=== PATIENT | female | born 1985 | race Two or more races ===

== ENCOUNTER → 2025-02-24 08:15 | Outpatient (REF) | payer OTHER, SELFPAY ==
--- NOTE | 2025-02-24 08:20 | ECG_ITS ---
Test Reason : R/O QT PROLONGATION Blood Pressure : */* mmHG Vent. Rate : 94 BPM Atrial Rate : 94 BPM P-R Int : 130 ms QRS Dur : 90 ms QT Int : 376 ms P-R-T Axes : 34 29 57 degrees QTcB Int : 470 ms Sinus rhythm with Premature atrial complexes with Aberrant conduction Otherwise normal ECG When compared with ECG of 21-Nov-2013 03:25, Aberrant conduction is now Present Referred By: Janette Santo Electronically Signed By: SHON GOSS MD
--- OUTSIDE RECORDS SUMMARY | 2025-02-24 08:22 | XMS_ITS | Encounter Summary ---
Author Organization [facility] Address [address] [place] [address] Care Team Providers Care Integration Developer Name Role Phone Bertha Hummel MD Primary Care Pr ovider Reason for Visit * Reason Onset Date Comments prior auth 01/26/2025 Encounter Details Date Type Department Care Team (Late st Contact Info) Description 01/26/2025 Telephone Adult Medicine [address] [phone] Bertha Hmumel MD [address] [place] [id number] prior auth Social History Tobacco Use Types Packs/Day Years Used Date Smoking Tobacco: Never Smokeless Tobacco: Never Alcohol Use Standard Drinks/Week Comments Never 0 (1 standard drink = 0.6 oz pur e alcohol) Comments No Sex and Gender Information Value Date Recorded Sex Assigned at Female 12/08/2024 6:17 AM EST Legal Sex Female 11:00 AM EST Gender Identity Female 12/08/2024 6:17 AM EST Sexual Orientation Choose not to disclose 2024 11:23 AM EST documented as of this encounter Progress Notes * Mora Barragan MA - 02/03/2025 3:19 PM EDT Prior authorization for the colace was completed today on [facility] Dx code K59.00 constipation * Lorena Love - 02/03/2025 1:05 PM EDT Pharmacy calling to check on prior auth status * Gudelia Gaxiola - 01/27/2025 3:20 PM EDT Prior Authorization for Medication-do not complete and send this encounter unless you have the fax from the pharmacy. Is this a Cover My Meds request: Yes -- [place] Code [id number] Name of Medication colace clear Dose of Medication 50 mg What is the RX # from the faxed refill? How does patient take this med? orally What Pharmacy did the fax come from: [facility] fax #: [phone] * Fidel Escamilla MA - 01/27/2025 10:59 AM EDT To [place] dept * Chanelle Curran - 01/26/2025 2:39 PM EDT Caller has been trying to fax a prior auth to [facility] for Colace Clear, [place] Code is [id number]. Please advise if Cover My Meds was received. documented in this encounter Plan of Treatment Upcoming Encounters Date Type Department Care Team (Late st Contact Info) Description 02/24/2025 2:00 PM EDT Office Visit Gastroenterology - [place] 175 [facility] 175 [facility] [address] [place] [phone] Jeannette Gutierrez, HUMA 175 [facility] [place], [place] [id number] 06/01/2025 3:00 PM EDT Office Visit Adult Medicine [facility] [address] [place] [phone] Francia Felton PA [address] [place] [address] 06/23/2025 3:00 PM EDT Office Visit [facility] [address] [phone] Kenia Boone MD [address] [phone] documented as of this encounter Visit Diagnoses Not on filedocumented in this encounter Care Teams Integration Developer Relationship Specialty Start Date End Date Bertha Hummel MD [address] [place] [address] PCP - General Internal Medicine 08/09/24 documented as of this encounter
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
--- OUTSIDE RECORDS SUMMARY | 2025-02-24 08:22 | XMS_ITS | Clinical Summary ---
Author Organization [facility] Address [address] [place] [address] Care Team Providers Care Doctor Of Naturopathic Medicine Name Role Phone Unavailable Primary Care Provider Unavailabl e Medications Medication Sig Dispensed Refills Start Date End Date Status Wellbutrin XL 300 MG 24 hr tablet 0 07/15/2024 Active Desvenlafaxine ER 50 MG TB24 Take 25 mg by mouth daily. 0 Active estradiol (ESTRACE) 1 MG tablet 0 07/21/2024 Active Arnuity Ellipta 100 MCG/ACT AEPB 0 07/15/2024 Active LaMICtal 25 MG tablet 0 07/16/2024 Active metoprolol succinate (TOPROL-XL) 24 hr tablet 25 mg 0 07/15/2024 Active spironolactone (ALDACTONE) tablet 50 mg 0 07/15/2024 Active omeprazole (PriLOSEC) 40 MG capsule 0 07/15/2024 Active levalbuterol (XOPENEX HFA) 45 MCG/ACT inhaler INHALE 1 TO 2 PUFFS INTO THE LUNGS EVERY 4 HOURS NEEDED FOR WHEEZING, SHORTNESS OF BREATH OR COUGH. 0 06/07/2024 Active Magnesium 400 MG CAPS Take 400 mg by mouth daily. 30 capsule 3 07/27/2024 Active Riboflavin 400 MG CAPS Take 400 mg by mouth daily. 30 capsule 3 07/27/2024 Active Social History Tobacco Use Types Packs/Day Years Used Date Smoking Tobacco: Never Assessed Sex and Gender Information Value Date Recorded Sex Assigned at Female 06/28/2024 12:11 PM EDT Gender Identity Not on file Sexual Orientation Not on file Job Start Date Occupation Industry Not on file Not on file Not on file Last Filed Vital Signs Vital Sign Reading Time Taken Comments Blood Pressure 128/85 07/27/2024 1:17 PM EDT Pulse 73 07/27/2024 1:17 PM EDT Temperature 36.1 ??C (97 ??F) 07/27/2024 1:17 PM EDT Respiratory Rate - - Oxygen Saturation - - Inhaled Oxygen Concentration - - Weight 66.5 kg (146 lb 9.6 oz) 07/27/2024 1:17 P M EDT Height 160 cm (5' 3 ) 07/27/2024 1:17 PM EDT Body Mass Index 25.97 07/27/2024 1:17 PM EDT Plan of Treatment Health Maintenance Due Date Last Done Comments Hepatitis C Screening 1986 COVID-19 Vaccine (#1) 05/14/1987 DTap / Tdap / Td (5 - Tdap) 11/14/199708/13, 08/08/1988, 03/18/1988, Additional history exists Depression Screening 1998 Preventative Health Evaluation 2004 Cervical Cancer Screening (Pap Smear) 2007 Influenza Vaccine (#1) 2024 Hepatitis B Vaccines Completed 03/23/2001, 10/14/2000, 07/30/2000 Pneumococcal Vaccine Aged Out No long er eligible based on patient's age to complete this topic RSV Ped < 20 months Aged Out No longe r eligible based on patient's age to complete this topic SIMÓN DOZIER [id number]
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
--- OUTSIDE RECORDS SUMMARY | 2025-02-24 08:23 | XMS_ITS | Clinical Summary ---
Author Organization [facility] Address [address] [place] [phone] Phone Care Team Providers Care Spar Machine Operator Name Role Phone Lyric Martínez Primary Care Provider [phone] Immunizations Immunization Administration Dates Next Due DTP 08/24/1990, 8,03/18/1988,1987,01/20/1987 Hep B, ped/adol 03/23/2001,10/14/2000,07/30/2000 Hib (PRP-T) 08/24/1990 MMR 07/11/2000,03/18/1988 OPV 08/08/1988, 8,01/17/1988,1986 Td (adult) (MBL), 2 Lf tetan us toxoid, PF, adsorbed 07/11/2000 Varicella 06/12/1997 Family History Relation Name Status Comments Father Alive Father: Hyperte nsion / Depression Mother Alive Mother: Depress ion Other Family history of Migraines, Family history of Asthma, Family history of Elevated cholesterol, Family history of Obesity, Family history of Diabetes mellitus, Family history of Sudden /AL under age 55 Paternal Grandmother Paterna l grandmother: Cancer -cervical Sister Alive Sister: mental disability Social History Tobacco Use Types Packs/Day Years Used Date Smoking Tobacco: Never Assessed Comments Unknown Sex and Gender Information Value Date Recorded Sex Assigned at Not on file Legal Sex Female 4:40 PM EDT Gender Identity Not on file Sexual Orientation Not on file Plan of Treatment Health Maintenance Due Date Last Done Comments DTaP,Tdap,and Td Vaccines (6 - Tdap) 07/12/2000 07/11/2000, 08/24/1990, 08/08/1988, Additional history exists Varicella Vaccines (2 of 2 - 2-dose childhood series) 08/08/2000 06/12/1997 Influenza Vaccines (#1) 2024 COVID-19 Vaccine ( season) 2024 IPV Vaccines Completed 08/08/1988, 03/1988, 01/17/1988, Additional history exists HIB Vaccines Completed 08/24/1990 MMR Vaccines Completed 07/11/2000, 03/18/1988 Hepatitis B Vaccines Completed 03/23/2001, 10/14/2000, 07/30/2000 HPV Vaccines Aged Out No longer eligi ble based on patient's age to complete this topic Hepatitis A Vaccines Aged Out No long er eligible based on patient's age to complete this topic Men B Vaccine Aged Out No longer elig ible based on patient's age to complete this topic Meningococcal Vaccine Aged Out No abel nabil eligible based on patient's age to complete this topic Pneumococcal Vaccine Aged Out No long er eligible based on patient's age to complete this topic Care Teams Spar Machine Operator Relationship Specialty Start Date End Date Lyric Martínez [address] [place] [id number] PCP - General 05/23/17
--- OUTSIDE RECORDS SUMMARY | 2025-02-24 08:23 | XMS_ITS | Data Portability ---
Author Organization [facility] Address [address] [place] [phone] Care Team Providers Care Outbound Sales Advisor Name Role Phone HIM CCA OTHER MIRANDA KRUEGER Primary Care Provider Assessment Encounter Date Assessment Date Assessment LastModified by Organization Details LastModified Time 07/12/2024 07/12/2024 I provided real -time medical direction via phone for this encounter and was available for additional phone-based assistance as needed. I have reviewed and agree with the Assessment and Plan as documented by the Defence Intelligence Analyst. Patient given the opportunity to ask questions. Our service contacted for an assessment of: Broken to As per above, patient states that she has a broken tooth and was in touch with her dentist who recommended a referral to what sounds like [facility]. She will have an in-person appointment on Friday. She states that she was told to call the service to prescribe clindamycin for her. She denies any fever chills. She states that she has taken clindamycin in the past. She does state that she has a history of MRSA as well as frequent dental infections requiring clindamycin treatment. Per cyber intelligence analyst on the scene, vital signs are stable patient is afebrile. Please see uploaded pictures. Impression: Broken tooth Plan: Prescribed a short course of clindamycin with 1st dose in the field for dental infection. Patient should follow-up on Friday with dentist for referral. Allergies: Reviewed and patient unable to give PCP f/u: We discussed the diagnostic uncertainty of home visits and the risk associated with this. In this case, the patient and I felt this to be an acceptable and reasonable amount of risk given the benefit of avoiding an ED visit. We discussed the need to seek care urgently/emerge ntly in the setting of any new or worsening serious symptoms, particularly fever chills [email or web address] Not available 07/12/2024 21:15:45 Plan of Treatment Reminders Order Date Submit Date Provider Last Modified By Organization Details Last Modified Time Details Appointments None recorded. Lab None recorded. Referral None recorded. Procedures None recorded. Surgeries None recorded. Imaging None recorded. Medication Orders clindamyci n HCl 300 mg capsule 2023 024 LESLIE [employer] [place], [address] [place], [address], 4 21:13:55 Patient TargetsNo targets recorded. Patient InstructionsNo instructions recorded. Reason for Referral None Reported. Medical Equipment None Reported. Medications Name Sig Start Date Stop Date Status Note LastModified by Organization Details LastModified Time amoxicillin 500 mg capsule active Not Available Not Available N ot Available Vitamin B-2 100 mg tablet active Not Available Not Available No t Available clonidine HCl 0.1 mg tablet active Not Available Not Availabl e Not Available clindamycin HCl 300 mg capsule Take 1 capsule every 6 hours by oral route for 5 days. 2023 active Not Available Not Available Not Avai lable sucralfate 1 gram tablet active Not Available Not Available Not Available Wellbutrin SR 150 mg tablet, 12 hr sustained-relea se active Not Available Not Available Not Available omeprazole 40 mg capsule,delayed release active Not Available Not Available Not Available famotidine 20 mg tablet active Not Available Not Available No t Available magnesium oxide 400 mg (241.3 mg magnesium) tablet active Not Available Not Available Not Available lorazepam 0.5 mg tablet active Not Available Not Available No t Available estradiol 1 mg tablet active Not Available Not Available Not Available Lamictal 25 mg tablet active Not Available Not Available Not Available simvastatin 20 mg tablet active Not Available Not Available No t Available hydrochlorothia zide 12.5 mg capsule active Not Available Not Available Not Available Lamictal 150 mg tablet active Not Available Not Available Not Available metoprolol succinate ER 25 mg tablet,extended release 24 hr active Not Available Not Availabl e Not Available scopolamine 1 mg over 3 days transdermal patch active Not Available Not Available Not Available ondansetron 4 mg disintegrating tablet active Not Available Not Available Not Available spironolactone 50 mg tablet active Not Available Not Available Not Available hydroxyzine pamoate 25 mg capsule active Not Available Not Available Not Available Wellbutrin XL 300 mg 24 hr tablet, extended release active Not Available Not Available Not Available Lunesta 3 mg tablet active Not Available Not Available Not Available levalbuterol HFA 45 mcg/actuation aerosol inhaler active Not Available Not Availa ble Not Available Pristiq 50 mg tablet,extended release active Not Available Not Available Not Available Arnuity Ellipta 100 mcg/actuation powder for inhalation active Not Available Not Available N ot Available Vyvanse 10 mg capsule active Not Available Not Available Not Available Pristiq 25 mg tablet,extended release active Not Available Not Available Not Available Vitals Date Recorded Body weight Oxygen saturation Oxygen saturation in Arterial blood by Pulse oximetry Body height Body temperature Respiratory rate Heart rate Systolic blood pressure Diastolic blood pressure Systolic blood pressure Diastolic blood pressure Provider Name and Address Organization Details Last Updated DateTime 4 70392.8 8 g 98 % 98 % 160.02 cm 98.7 [degF] 14 /min 82 /min 118 mm[Hg] 100 mm[Hg] 148 mm[Hg] 100 mm[Hg] Not Available [facility] - [facility] 4 20:08:11 Social History None recorded. Functional Status None recorded. Mental Status None recorded. Family History Nothing Reported. Medical History No medical history recorded. Gynecological HistoryNo gynecological history recorded. Obstetrics History GPAL:G 0 P 0 0 0 0 Past Encounters Encounter ID Performer Location Encounter Start Date Encounter Closed Date Diagnosis/Indication Diagnosis SNOMED-CT Code Diagnosis ICD10 Code Diagnosis Note [id number] Zamzam Clark MD [facility] [address] [place] [phone] 07/12/2024 19:26:21 07/13/2024 12:53:42 Infection of tooth 678199030 K04.7 Fracture of tooth 800854 09 S02.5XXA Health Concerns Section Related Observation LastModified by Organization Detai ls LastModified Time None Recorded Concern Status LastModified by Organization Details LastModified Time None Recorded Advance Directives Directive None Recorded Payers Insurance Date Sequence Insurance Name Policy Number Policy Cooley Covered Member ID Cooley Member ID Guarantor Name 07/14/2024 1 [facility] - DOS ON OR AFTER 2023 - DUAL ELIGIBLE - JAIL OPTIONS AND ONE CARE (MEDICARE REPLACEMENT/ADV ANTAGE - HMO) Asha Tracy [id number] Asha Tracy Notes Date Note Type Note Provider Name and Address Organization Details Recorded Time 07/12/2024 text/html [facility] Nurse Triage Notes (Cristhian Basurto): Reason For Request: poss infected tooth Chief Complaints: Dental Concerns Allergies: Unknown Comments: Pt reports upper left back tooth pain - Facial swelling - Denies fever - Denies pain - I broke my tooth yesterday and I have a bad taste in my mouth. Dentist appt is scheduled for Friday morning - Wellness visit requested .................. .................. .................. .................. .................. .................. .................. ............... Defence Intelligence Analyst Note From Ida Burris: Disp for the 38 year old female cc broken tooth. Upon arrival patient found walking on scene. Patient is FINNEGAN x 4 GCS x 15 speaking in full sentences with ease, skin pink/warm/dry, strong radial pulse. Patient states her first molar on upper left side of mouth broke in half yesterday. Patient has an extensive history of teeth issues and oral surgeries, resulting in root canals, jaw abscesses and bone graphs. Patient also has an extensive history of MRSA. Patient states she was advised by her dentist to go to urgent care and get antibiotics for prophylactic treatment. Patient states she has a dentist appointment for this Friday and will get a referral to her Oral surgeon. Patient denies chest pain, denies shortness of breath, denies n/v/d, denies recent fevers, denies swelling/redness at affected site. Patient vtls obtained, as stated above. BP 148/100. Patient reports htn at baseline. [place] [facility] [place]. Patient spoke with Dr. Clark about extensive oral/dental history. Dr. Clark ordered 300 mgs of clindamycin PO and antibiotic sent to pharmacy. Dr. Clark advised patient that prescription would ne enough to get her to dentist appointment, and advised her to ask Dentist to take over treatment/antibiot ic care. Patient was advised of risks/red flags and was advised to go to local emergency room. Patient took medication on scene. Patient understood risks and treatment plan. All times approx. .................. .................. .................. .................. .................. .................. .................. ............... Disposition: Fulfilled Zamzam Clark MD [address] [place] [address],[address], [place], [phone], [employer] 07/12/2024 21:15:58 OBGyn Episode No OBEpisode recorded.
--- OUTSIDE RECORDS SUMMARY | 2025-02-24 08:23 | XMS_ITS | Encounter Summary ---
Author Organization [facility] Address [address] [place] [address] Phone Care Team Providers Care Information Resources Manager Name Role Phone Lyric Martínez Primary Care Provider [phone] Encounter Details Date Type Department Care Team (Late st Contact Info) Description 05/29/2017 Conversion Encounter [facility] [address] [place] [address] Social History Tobacco Use Types Packs/Day Years Used Date Smoking Tobacco: Never Assessed Comments Unknown Sex and Gender Information Value Date Recorded Sex Assigned at Not on file Legal Sex Female 4:40 PM EDT Gender Identity Not on file Sexual Orientation Not on file documented as of this encounter Plan of Treatment Not on file documented as of this encounter Visit Diagnoses Not on filedocumented in this encounter Care Teams Information Resources Manager Relationship Specialty Start Date End Date Lyric Martínez [address] [facility] [address] [place] [address] PCP - General 05/23/17 documented as of this encounter
--- OUTSIDE RECORDS SUMMARY | 2025-02-24 08:23 | XMS_ITS | Clinical Summary ---
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 the absence of epileptiform abnormalities does not preclude a clinical diagnosis of seizures. ??Clinical correlation required. CC Kristen Maloney PA Damian Moskal, MD Epileptologist/Staff neurologist ?? us Kristen [facility] ORDER[facility]LES Final R esult from Last 3 Months Insurance SIMÓN DOZIER [id number] [facility] MEDIC[facility] Member Subscriber Plan / Payer (Ef fective 2019-Present) Name:Asha Tracy Relation to Subscriber:Self Name:Asha Tracy Payer ID:[id number] Group ID:[id number] Type:Not on file Address: [address] [id number] Care Teams Sales Negotiator Relationship Specialty Start Date End Date Bertha Hummel MD [address] [place] [id number] PCP - General Internal Medicine 08/09/24
[2025-02-24 08:43] LABS: MANUAL DIFF FLAG NO
[2025-02-24 09:26] LABS: Basophils Absolute Auto 0.1 X10*3/uL (0.0-0.2); Basophils Percent Auto 0.7 % (0-2); Eosinophils Absolute Auto 0.1 X10*3/uL (0.0-0.4); Eosinophils Percent Auto 1.5 % (0-4); Hematocrit 42.7 % (37.0-47.0); Hemoglobin 14.1 g/dl (12.0-16.0); Imm Gran Abs Auto 0.03 X10*3/uL (0.00-0.03); Imm Gran Pct Auto 0.4 % (0.0-0.4); Lymphocytes Absolute Auto 2.3 X10*3/uL (1.2-4.9); Lymphocytes Percent Auto 32.2 % (20-40); Mean Corpuscular Hemoglobin 30.2 pg (27.0-33.0); Mean Corpuscular Volume 91.4 fL (80.0-98.0); Mean Platelet Volume 8.2 fL (9.4-12.3); Monocytes Absolute Auto 0.6 X10*3/uL (0.1-1.2); Monocytes Percent Auto 8.1 % (2-11); Neutrophils Absolute Auto 4.1 x10*3/uL (2.0-8.3); Neutrophils Percent Auto 57.1 % (45-73); Platelet Count 342 X10*3/uL (160-400); Red Blood Count 4.67 X10*6/uL (4.20-5.50); Red Cell Distribution Width 12.6 % (11.0-16.0); White Blood Count 7.1 X10*3/uL (4.8-10.8)
[2025-02-24 09:31] LABS: Estimated Average Glucose 103 mg/dL; Hemoglobin A1C 124.5459 umol/L; Hemoglobin A1c % 5.2 % (<6.0); Total Hemoglobin (HGBA1C) 3736.7141 umol/L
[2025-02-24 09:31] LABS: UPreg QC Valid YES
[2025-02-24 09:32] LABS: Appearance Urine Cloudy; Color Urine Yellow; Glucose Urine UA Negative (Negative); Leukocyte Esterase Urine Negative (Negative); Nitrite Urine Negative (Negative); PH 5.5 (5.0-9.0); Specific Gravity - Urine 1.025 (1.005-1.025); Urine Blood Negative (Negative); Urine Ketones Trace mg/dL (Negative); Urine Pregnancy NEGATIVE (NEGATIVE); Urine Protein Trace mg/dL (Neg-Trace)
[2025-02-24 10:02] LABS: Erythrocyte Sedimentation Rate 12 MM/HR (0-20)
[2025-02-24 10:03] LABS: Parathyroid Hormone Intact 83.8 pg/mL (8.7-77.1)
[2025-02-24 10:13] LABS: Alanine Aminotransferase 28 U/L (0-31); Albumin Level 4.6 g/dL (3.5-5.0); Alkaline Phosphatase 59 U/L (39-117); Anion Gap 15 (12-20); Aspartate Amino Transferase 23 U/L (5-31); Bilirubin Total 0.4 mg/dL (0.0-1.0); Blood Urea Nitrogen 16 mg/dL (9-16); C Reactive Protein < 0.04 mg/dL (< or = 0.50); Calcium 9.7 mg/dL (8.4-10.2); Carbon Dioxide 26 mmol/L (22-29); Chloride 104 mmol/L (96-108); Cholesterol 191 mg/dL (<200); Estimated Glomerular Filt Rate > 60; Glucose Fasting 101 mg/dL (60-99); HDL Cholesterol 59 mg/dL (>40); Iron 146 mcg/dL (30-160); LDL Cholesterol Calculated 117 mg/dL (<100); Percent Iron Saturation 39 % (15-50); Phosphorus 3.4 mg/dL (2.7-4.5); Potassium 4.7 mmol/L (3.3-5.1); Sodium 140 mmol/L (135-145); Total Iron Binding Capacity 376 mcg/dL (228-428); Total Protein 7.4 g/dL (6.5-8.0); Triglycerides 76 mg/dL (<150); Unsaturated Iron Binding 230 ug/dL
[2025-02-24 10:16] LABS: Free T4 (Free Thyroxine) 0.91 ng/dL (0.71-1.85); Thyroid Stimulating Hormone 1.61 uIU/mL (0.32-4.0); Vitamin D 25-OH Total 91.3 ng/mL (>30)
[2025-02-24 10:17] LABS: Syphilis Screen Nonreactive (Nonreactive)
[2025-02-24 10:27] LABS: HBS Num1 > 1000.00 mIU/mL (0-7.99); HBc Num1 0.05 S/CO (0.00-0.79); HBsAGNum1 0.41 S/CO (0.00-0.99); HIV AB/AG Nonreactive (Nonreactive); HIV Num 1 0.07 S/CO (0.00-0.99); Hepatitis B Core Antibody Nonreactive (Nonreactive); Hepatitis B Surface Antigen Negative (Negative); ~HepC Num1 0.08 S/CO (0.00-0.79); ~Hepatitis B Surface Antibody REACTIVE (Nonreactive); ~Hepatitis C Antibody Nonreactive (Nonreactive)
[2025-02-24 10:36] LABS: Folate 5.8 ng/mL (> or = 4.0); Vitamin B12 531 pg/mL (200-900)
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
[2025-02-25 18:53] LABS: Homocysteine 12.9 umol/L (<10.4)
== END | disposition home or self-care (01) ==
LOC: HO.CARD 08:15
PROVIDERS: PCP Family Medicine; Visit Provider Psychiatry & Neurology Psychiatry
DX: F39 Unspecified mood [affective] disorder (principal); Z79.899 Other long term (current) drug therapy
CPT/HCPCS: 36415; 80053; 80061; 81003; 81025; 82306; 82607; 82746; 83036; 83090; 83540; 83735; 83921; 83970; 84100; 84425; 84439; 84443; 85025; 85652; 86140; 86704; 86706; 86780; 86803; 87340; 87389; 93005

== ENCOUNTER → 2025-02-24 08:15 | Outpatient (BNV) | payer OTHER, SELFPAY | PROVIDERS: PCP Family Medicine; Visit Provider Clinical Nurse Specialist Psychiatric/Mental Health, Adult | DX: F43.10 Post-traumatic stress disorder, unspecified (principal) | CPT/HCPCS: 99212 ==

== ENCOUNTER → 2025-02-24 08:20 | Outpatient (BNV) | payer OTHER, SELFPAY | PROVIDERS: PCP Family Medicine; Visit Provider Internal Medicine Cardiovascular Disease | DX: I49.1 Atrial premature depolarization (principal) | CPT/HCPCS: 93010 ==

== ENCOUNTER 2025-03-04 10:30 | Outpatient (RCR) | payer OTHER, SELFPAY ==
[2025-02-17 11:39] VITALS: BP 119/87; PULSE 71; TEMP 36.6
--- NOTE | 2025-02-17 15:00 | HO.PHP ---
Clients case was opened and reviewed in teams today.
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
--- NOTE | 2025-02-25 13:11 | HO.PHP ---
This clinician provided the patient with information from the [facility] after she requested assistance to be placed in a respite to spend the weekend because her family were going on vacation and she didn't want to go. After been told about the process (the need of an evaluation at the ED) she reported that the ED is a trigger for her and she refused. After a conversation she agreed to obtain the information from [facility] to call them to see their availability. Safety concerns were discussed and Asha reported to feel supported because if she's unable to go to the respite she will be able to be with her partner.
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
== END 2025-03-04 23:59 | disposition home or self-care (01) ==
LOC: HO.PHPA 10:30
PROVIDERS: Visit Provider Psychiatry & Neurology Psychiatry
DX: F43.10 Post-traumatic stress disorder, unspecified (principal); F22 Delusional disorders; F40.8 Other phobic anxiety disorders; F32.A Depression, unspecified; Z79.899 Other long term (current) drug therapy
CPT/HCPCS: 90791; 90853

== ENCOUNTER → 2025-03-21 09:00 | Outpatient (BNV) | payer OTHER, SELFPAY | PROVIDERS: Visit Provider Psychiatry & Neurology Psychiatry | DX: F43.10 Post-traumatic stress disorder, unspecified (principal); F22 Delusional disorders; F40.8 Other phobic anxiety disorders; F32.A Depression, unspecified | CPT/HCPCS: 99214 ==

== ENCOUNTER 2025-04-08 09:15 | Outpatient (RCR) | payer OTHER, SELFPAY ==
[2025-03-10 09:49] VITALS: BP 92/60; PULSE 60; TEMP 36.4
[2025-03-10 09:52] VITALS: BMI 19.4
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
--- NOTE | 2025-03-10 14:55 | HO.IOP ---
This case was opened and reviewed on treatment teams.
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
--- NOTE | 2025-03-23 14:11 | HO.IOP ---
The patient called back and reported to be devastated for her loss (dog) and indicated to be waiting on her partner to make a decision about leaving the state for a while to ease the pain. She will be calling the clinician tomorrow (03/24/12) to informed her about the final decision and proceed with the discharge in case of leaving.
[2025-03-30 10:30] VITALS: BP 98/78; PULSE 70; RESP 18
--- NOTE | 2025-03-30 17:16 | PC.NURSE ---
Asha reported having palpitations and asked for her blood pressure to be taken BP 98/78, P 70. When asked if she was having palpitations right now she stated No, when asked if she had pain she stated No. She reports she just started a new medication stated That could be it.' Dr. Santo notified.
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
--- NOTE | 2025-04-05 12:54 | HO.IOP ---
This clinician called the patient after receiving information that she reported SI with a plan during the third group (the group that the patients respond to seven risks assessment questions) and another message from the Program pathology secretary that she is not coming to the Program tomorrow (04/06/25). The patient reported to have no intent of committing suicide, to have an in person therapy appointment with her therapist today at 2 pm, and indicated that her partner is at home. She manifested to need a day because was severely triggered by the feedback of another member of the group. This clinician asked about access to the Crisis and suicidal hot line phone numbers and she indicated to have both because she's part of a team at [facility]. She also reported that is going to be back to the Program on .
--- NOTE | 2025-04-05 15:26 | HO.PHP ---
[facility] staff member followed up with Asha due to her stating in the third group that she was struggling with suicidal thoughts with a plan no intent. Asha acknowledged that she did state that but did not want to divulge on what the plan is and stated that it is the same one that she has had for the past 11 years. Asha clarified that these were just passing thoughts due to feeling triggered by what was being discussed in groups. Asha noted that the group processing this time around has not been as helpful as the previous time due to her struggling with the grieving process. [facility] staff member explored with Asha what her protective factors are from acting on those thoughts. Asha disclosed her protective factor is that she knows what it would do to the people she loves and doesn't want to affect them in that manner. Asha reassurred the [facility] staff member that she has not intent to act on it and that she does not want to , she just wants the harrassment with the stalking to discontinue. Asha is aware of how to contact [facility] crisis if needed. Asha mentioned that she will not be in attendance to program tomorrow because it has been too challenging the past couple days and she needs a break. [facility] staff member assessed if she has any plans for tomorrow. Asha noted that her partner will be home tomorrow helping her get a home health aid. Asha also shared that she will be setting up her art studio and build a diorama kit. Asha voiced that she will be in attendance to program on . [facility] staff member was receptive. [facility] staff member also discussed a CSP worker with Asha. Asha expressed that she is open to trying and if she feels it isn't a good fit after meeting with them, she will continue with her current team.
--- NOTE | 2025-04-05 15:53 | HO.IOP ---
IOP staff member followed up with Asha due to her stating in the third group that she was struggling with suicidal thoughts with a plan no intent. Asha acknowledged that she did state that but did not want to divulge on what the plan is and stated that it is the same one that she has had for the past 11 years. Asha clarified that these were just passing thoughts due to feeling triggered by what was being discussed in groups. Asha mentioned that she just had therapy with her OP provider and they just processed this as well and he will be meeting with her again on Friday. Ahsa noted that the group processing this time around has not been as helpful as the previous time due to her struggling with the grieving process. IOP staff member explored with Asha what her protective factors are from acting on those thoughts. Asha disclosed her protective factor is that she knows what it would do to the people she loves and doesn't want to affect them in that manner. Asha reassurred the IOP staff member that she has not intent to act on it and that she does not want to , she just wants the harrassment with the stalking to discontinue. Asha is aware of how to contact [facility] crisis if needed. Asha mentioned that she will not be in attendance to program tomorrow because it has been too challenging the past couple days and she needs a break. IOP staff member assessed if she has any plans for tomorrow. Asha noted that her partner will be home tomorrow helping her get a home health aid. Asha also shared that she will be setting up her art studio and build a diorama kit. Asha voiced that she will be in attendance to program on . IOP staff member was receptive. IOP staff member also discussed a CSP worker with Asha. Asha expressed that she is open to trying and if she feels it isn't a good fit after meeting with them, she will continue with her current team.
--- NOTE | 2025-04-08 17:57 | P.PNPSP_ITS ---
Subjective Subjective Date of Service: 04/08/25 Reason For Visit: PTSD,anxiety,depression Interim History: Patient seen for follow-up, anticipating discharge at the end of program today.? Reports no acute issues or concerns. Medication compliant, medications well- tolerated. Denies any adverse effects.? Mood is stable.? Denies any hopelessness or SI. Denies thoughts of harming self or others at this time. Denies any aggressive ideation or HI. Denies any paranoia or AH or VH. Sleep, appetite, energy stable. Mental Status Exam Mental Status Exam Narrative: Patient Appearance: Well Grooomed and Appropriate Patient Orientation: Person, Place, Time and Situation Level of Consciousness: Awake and Alert Patient Behavior: Appropriate and Cooperative Mood Description: Apprehensive Affect Description: Blunted Patient Cognition Impaired: No Ability to Follow Directions: Good Speech Pattern: Clear Hallucinations: None, does not present as internally preoccupied, does not appear to be responding to internal stimuli Delusions: Ideas of Reference Thought Process: Intact and Goal Oriented, no evidence of thought disorder Thought Content: positive for Perseveration, delusional ideation, Judgement: Fair Diagnostics Vital Signs (24Hr): BMI result Body Mass Index 19.4 Assessment & Plan Assessment & Plan (1) PTSD (post-traumatic stress disorder): Status: Acute Code(s): F43.10 - Post-traumatic stress disorder, unspecified (2) Delusional ideas: Status: Acute Code(s): F22 - Delusional disorders (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 Code(s): F40.8 - Other phobic anxiety disorders (4) Depressive disorder: Status: Acute Code(s): F32.A - Depression, unspecified Plan Discharge from [facility] Continue regular medications Refills sent to pharmacy Will defer further medication management to outpatient provider *Safety plan reviewed *Discharge diagnoses, treatment course, discharge plan have been reviewed with patient (including medication regime, medication management, potential side effects) as well as treatment rationale were also revisited *Discharge paperwork signed and given to patient, copy sent for scanning to chart Patient educated on: medication risk/benefits Informed Consent: understands Reason for contiued partial hosp. stay Substantial Risk for: stable for discharge Certification I certify that the patient needs IOP Services for a minimum of 9 hours per week of therapeutic services. I certify the patient is experiencing symptoms of such intensity that they are unable to be safely treated in a less intensive setting and would otherwise require?admission to a more intensive level of care. Total time managing care of this patient today ____ minutes. Discharge Plan Discharge Attending provider: Janette Santo Medications: Continued fluticasone furoate-vilanterol [Breo Ellipta] 100-25 mcg/dose blister with device 1 ea inhalation DAILY metoprolol succinate 50 mg Tablet Extended Release 24 Hr 50 mg PO DAILY omeprazole 40 mg Capsule,Delayed Release(Dr/Ec) 40 mg PO DAILY simvastatin 20 mg Tablet 20 mg PO BEDTIME cholecalciferol (vitamin D3) 1,250 mcg (50,000 unit) capsule 1,250 mcg PO QWEEK Rx Instructions: 50,000 units weekly. spironolactone 50 mg Tablet 100 mg PO BID lamotrigine [Lamictal] 100 mg Tablet 100 mg PO BID Qty: 30 0RF hydroxyzine pamoate 25 mg capsule 50 mg PO BEDTIME Qty: 15 0RF desvenlafaxine succinate [Pristiq] 50 mg tablet extended release 24 hr 50 mg PO DAILY 30 Days Qty: 30 0RF Rx Instructions: LINDA Brand Name medically necessary; no substitutions Changed bupropion HCl [Wellbutrin XL] 150 mg tablet extended release 24 hr 150 mg PO BID 30 Days Qty: 60 2RF Rx Instructions: brand name only medically necessary , no substitutions LINDA risperidone [Risperdal] 0.5 mg tablet 0.25 - 0.5 mg PO BID PRN (Reason: assistance with grounding) Qty: 30 0RF Stand Alone Forms: Patient Portal Discharge page Print Language: Croatian
== END 2025-04-08 23:59 | disposition home or self-care (01) ==
LOC: HO.IOP 09:15
PROVIDERS: Visit Provider Psychiatry & Neurology Psychiatry
DX: F43.10 Post-traumatic stress disorder, unspecified (principal); F22 Delusional disorders; F40.8 Other phobic anxiety disorders; F32.A Depression, unspecified; Z91.410 Personal history of adult physical and sexual abuse; Z79.899 Other long term (current) drug therapy
CPT/HCPCS: 90791; H0015; S9480